=== PATIENT | male | born 1995 | race Two or more races ===

== ENCOUNTER 2017-02-14 22:15 | Emergency (ER) | payer BC, OTHER ==
[~2017-02-14] VITALS: Ht 180.3 cm; Wt 70.3 kg
[2017-02-14 22:27] VITALS: BP 133/72
[2017-02-14] MEDS ORDERED: HYDROCORTISONE30 G2 TP (22:33)
[2017-02-14] MEDS ORDERED: KEFLEX500 MG ORAL (22:33)
[2017-02-14 22:38] VITALS: BP 133/72
--- NOTE | 2017-02-15 02:49 | Emergency Room Report ---
History of Present Illness General Chief Complaint: Skin Rash/Abscess Source: Patient Present Illness HPI Patient is a 21-year-old male presented after increased skin rash to his lower extremities. Patient gradual onset of symptoms. Over the past few days. The patient denied fever. He reported having some generalized itching to his lower extremities. He reported having a friend's pet approximately 2 weeks ago. Itching developed over the past 3 days. He denied any leg numbness or tingling. Rash was isolated to his lower extremities. Allergies: Coded Allergies: No Known Allergies (Unverified , 02/14/17) Patient History Past Medical History: see triage record Reviewed Nursing Documentation: PMH: Agreed, PSxH: Agreed Nursing Documentation-PMH Past Medical History: No Stated History Review of Systems All Other Systems: negative except mentioned in HPI Physical Exam Vital Signs Date Time Temp Pulse Resp B/P Pulse Ox O2 Delivery O2 Flow Rate FiO2 02/14/17 22:22 97.9 98 16 133/72 100 Room Air General Appearance: well appearing, no apparent distress, alert, GCS 15 Head: normocephalic, atraumatic ENT: hearing grossly normal, normal voice Neck: full range of motion, supple Respiratory: no respiratory distress, speaking full sentences Musculoskeletal: normal inspection, no calf tenderness Neurologic: normal inspection, alert, oriented x3, responsive, normal gait Psychiatric: mood/affect normal Skin: no rash, other - multiple excoriations Medical Decision Making Diagnostic Impression: Primary Impression: Infected insect bite of ankle ER Course Patient presented for skin rash. Differential diagnosis included was not limited to Ortiz-Chad syndrome, urticaria, erythema multiforme, contact dermatitis, insect bite. Patient's benign exam and does not appear to require any further imaging or laboratory testing at this time. The patient appears to have the infected insect bites to his lower extremityPatient given prescription for steroid cream.The patient is advised to follow up with primary care doctor in 1-2 days. Patient is advised to return if any worsening condition or if any changes in status that are concerning. Last Vital Signs Date Time Temp Pulse Resp B/P Pulse Ox O2 Delivery O2 Flow Rate FiO2 02/14/17 22:38 97.9 16 133/72 100 Room Air 02/14/17 22:22 98 Status: improved Disposition: HOME, SELF-CARE Condition: Improved Scripts Hydrocortisone (Hydrocortisone Cream 2.5%) Y Cream.appl 1 APPLIC TP BID, #30 GM Prov: Benjamin Celis 02/14/17 Cephalexin* (KEFLEX*) 500 Mg Capsule 500 MG ORAL Q6H, #28 CAP 0 Refills Prov: Benjamin Celis 02/14/17 Referrals: NOT CHOSEN IPA/MD,REFERRING (PCP) Patient Instructions: Insect Bite, [id number] Benjamin Celis Feb 15, 2017 02:49
== END 2017-02-14 22:38 | disposition home or self-care (01) ==
LOC: EMR 22:30
DX: S90.569A Insect bite (nonvenomous), unspecified ankle, initial encounter (principal); L08.9 Local infection of the skin and subcutaneous tissue, unspecified; W57.XXXA Bitten or stung by nonvenomous insect and other nonvenomous arthropods, initial encounter; Y93.9 Activity, unspecified; Y92.9 Unspecified place or not applicable
CPT/HCPCS: 99284

== ENCOUNTER → 2017-03-20 | Emergency (ER) | payer OTHER ==
[~2017-03-20] VITALS: Ht 180.3 cm; Wt 70.3 kg
[~2017-03-20] MED LIST: ATARAX25 MG ORAL; HYDROCORTISONE30 G2 TP; KEFLEX500 MG ORAL; PERMETHRIN60 GM TOPIC
[2017-03-20 13:13] VITALS: BP 138/74
--- NOTE | 2017-03-20 14:09 | Emergency Room Report ---
History of Present Illness General Chief Complaint: Skin Rash/Abscess Present Illness HPI 21 YO Male presents to the ED c/o itchy rash with multiple lesions to the bilateral LE's x 2 weeks. pt. states he was seen here previously and rx'd cream and antibiotics, pt. states the cream mildly subsided his itching however he continues to have itchy lesions without relief. pt. states he has not followed up with a PMD since previous ED visit. pt. denies fevers, chills, erythema, joint pain, abdominal pain, or tender lymph nodes. pt. states that his symptoms have also progressed up the leg to the knees, and the bilateral wrists. Denies lesions/rashes elsewhere on the body. Denies new medications or body washes or creams. Denies swelling of the lips, tongue , throat or airway. Denies wheezing, or shortness of breath. Denies recent travel, recent illness or ill contacts. Denies CP, Palpitations, LOC, AMS, dizziness, Changes in Vision , Sensation, paresthesias, or a sudden severe headache. Allergies: Coded Allergies: No Known Allergies (Unverified , 02/14/17) Patient History Past Medical History: see triage record Past Surgical History: none Pertinent Family History: none Immunizations: UTD Reviewed Nursing Documentation: PMH: Agreed, PSxH: Agreed Nursing Documentation-PMH Past Medical History Deferred: Patient Unconscious Past Medical History: No Stated History Review of Systems All Other Systems: negative except mentioned in HPI Physical Exam Vital Signs Date Time Temp Pulse Resp B/P Pulse Ox O2 Delivery O2 Flow Rate FiO2 03/20/17 13:13 98.2 98 18 138/74 97 Room Air Sp02 EP Interpretation: reviewed, normal General Appearance: no apparent distress, alert, GCS 15, non-toxic Head: normocephalic, atraumatic Eyes: bilateral eye PERRL, bilateral eye normal inspection ENT: hearing grossly normal, normal pharynx, no angioedema, normal voice Neck: full range of motion, supple/symm/no masses Respiratory: lungs clear, normal breath sounds, speaking full sentences Cardiovascular #1: regular rate, rhythm, no edema Gastrointestinal: non tender, soft, no guarding Musculoskeletal: back normal, gait/station normal, normal range of motion, non- tender Neurologic: alert, oriented x3, responsive, motor strength/tone normal, sensory intact, speech normal Psychiatric: judgement/insight normal, memory normal, mood/affect normal Skin: normal color, warm/dry, well hydrated, rash - numerous flesh colored papules noted on the bilateral LE's and wrists, no erythema, no increased temperature to palpation, vessicles, or blisters. excoriations are noted on LE' s and UE's Lymphatic: no adenopathy Medical Decision Making PA Attestation Dr. Keene is my supervising Physician whom patient management has been discussed with. Diagnostic Impression: Primary Impression: Rash and other nonspecific skin eruption ER Course 21 YO Male presents to the ED c/o itchy rash with multiple lesions to the bilateral LE's x 2 weeks. pt. states he was seen here previously and rx'd cream and antibiotics, pt. states the cream mildly subsided his itching however he continues to have itchy lesions without relief. pt. states he has not followed up with a PMD since previous ED visit. pt. denies fevers, chills, erythema, joint pain, abdominal pain, or tender lymph nodes. pt. states that his symptoms have also progressed up the leg to the knees, and the bilateral wrists. Denies lesions/rashes elsewhere on the body. Denies new medications or body washes or creams. Denies swelling of the lips, tongue , throat or airway. Denies wheezing, or shortness of breath. Denies recent travel, recent illness or ill contacts. Denies CP, Palpitations, LOC, AMS, dizziness, Changes in Vision , Sensation, paresthesias, or a sudden severe headache. Ddx considered but are not limited to cellulitis, scabies, insect bites, tic bites, spider bites, contact dermatitis, Drug reaction, allergic reaction, fungal infection, lice. Vital signs: are WNL, pt. is afebrile H&PE are most consistent with rash with localized reaction, suspicious for scabies due to linear pattern. no evidence of secondary bacterial infection. ORDERS: none required at this time, the diagnosis is clinical ED INTERVENTIONS: None required at this time. -Pt. Education: on proper follow up with PCP, and Dermatology evaluation for skin rash if his symptoms persist. d/w pt. to return to ED for evaluation of worsening or new symptoms, otherwise with current presentation he is stable for close outpatient follow up. DISCHARGE: At this time pt. is stable for d/c to home. Will provide printed patient care instructions, and any necessary prescriptions. Care plan and follow up instructions have been discussed with the patient prior to discharge. Last Vital Signs Date Time Temp Pulse Resp B/P Pulse Ox O2 Delivery O2 Flow Rate FiO2 03/20/17 13:13 98.2 106 18 138/74 97 Room Air Disposition: HOME, SELF-CARE Condition: Stable Scripts Permethrin* (ELIMITE*) 60 Gm Cream..g. 1 APPLIC TOPIC ONCE, #60 GM 1 Refill Apply cream from head to toe; leave on for 8-14 hours before washing off with water; may reapply in 1 week if live mites appear. Prov: Malena Frank 03/20/17 Hydroxyzine HCl (Hydroxyzine HCl) 25 Mg Tablet 25 MG ORAL FOUR TIMES A DAY for 7 Days, #28 TAB Prov: Malena Frank 03/20/17 Hydrocortisone (Hydrocortisone Cream 2.5%) Y Cream.appl 1 APPLIC TP BID, #28.3 GM 1 Refill Prov: Malena Frank 03/20/17 Patient Instructions: Rash Additional Instructions: Take medications as directed. Follow up with a Primary Care Provider in 3-5 days, even if your symptoms have resolved. - DERMATOLOGY EVALUATION if symptoms persist. --Please review list of primary care clinics, if you do not already have a primary care provider Return sooner to ED if new symptoms occur, or current symptoms become worse. attached is some information about scabies, please disregard the title of Pediatric, this information is useful, and relevant regardless of age. - Please note that this Emergency Department Report was dictated using [employer] technology software, occasionally this can lead to erroneous entry secondary to interpretation by the dictation equipment. Malena Frank Mar 20, 2017 14:09
[2017-03-20 14:15] VITALS: BP 138/74
== END | disposition home or self-care (01) ==
LOC: EMR 13:00
DX: R21 Rash and other nonspecific skin eruption (principal)
CPT/HCPCS: 99284

== ENCOUNTER 2017-04-23 14:15 | Emergency (ER) | payer OTHER ==
[~2017-04-23] VITALS: Ht 180.3 cm; Wt 70.3 kg
--- NOTE | 2017-04-23 15:12 | Emergency Room Report ---
History of Present Illness General Chief Complaint: Skin Rash/Abscess Source: Patient Present Illness HPI 22-year-old male presents to the emergency department complaining of itchy lesions to the bilateral ankles and wrists intermittently x2.5 months. Patient states that he was treated several months ago for scabies infection. Patient states that he believes that his roommate who is not treated became infected and has caused him to become reinfected. Patient denies thorough cleaning of linens and carpets. Patient denies fevers, chills, nausea, vomiting.Denies lesions/rashes elsewhere on the body. Denies new medications or body washes or creams. Denies swelling of the lips, tongue , throat or airway. Denies wheezing , or shortness of breath. Denies recent travel, recent illness or ill contacts. denies blisters, oral lesions, or sloughing of the skin. Denies CP, Palpitations, LOC, AMS, dizziness, Changes in Vision, Sensation, paresthesias, or a sudden severe headache. Allergies: Coded Allergies: No Known Allergies (Unverified , 02/14/17) Patient History Past Medical History: see triage record Past Surgical History: none Pertinent Family History: none Immunizations: UTD Reviewed Nursing Documentation: PMH: Agreed, PSxH: Agreed Nursing Documentation-PMH Past Medical History: No Stated History Review of Systems All Other Systems: negative except mentioned in HPI Physical Exam Vital Signs Date Time Temp Pulse Resp B/P (MAP) Pulse Ox O2 Delivery O2 Flow Rate FiO2 04/23/17 14:30 98.1 77 14 128/81 96 Room Air Sp02 EP Interpretation: reviewed, normal General Appearance: no apparent distress, alert, GCS 15, non-toxic Head: normocephalic, atraumatic Eyes: bilateral eye normal inspection, bilateral eye PERRL ENT: hearing grossly normal, normal pharynx, no angioedema, normal voice, other - no swelling of the lips or tongue, no oral lesions. Neck: full range of motion, supple/symm/no masses Respiratory: lungs clear, normal breath sounds, no wheezing, speaking full sentences Cardiovascular #1: regular rate, rhythm, normal capillary refill Gastrointestinal: non tender, no guarding, no rebound Musculoskeletal: back normal, gait/station normal, normal range of motion, non- tender Neurologic: alert, oriented x3, responsive, motor strength/tone normal, sensory intact, speech normal Psychiatric: judgement/insight normal, memory normal, mood/affect normal Skin: normal color, warm/dry, well hydrated, rash - multiple scant erythematous papules with blanching erythema on the bilateral wrists and ankles , no lesions elsewhere on the body, no increased temperature to palpation no blisters , no vessicles. Lymphatic: no adenopathy Medical Decision Making PA Attestation Dr. rice is my supervising Physician whom patient management has been discussed with. Diagnostic Impression: Primary Impression: Rash and other nonspecific skin eruption ER Course 22-year-old male presents to the emergency department complaining of itchy lesions to the bilateral ankles and wrists intermittently x2.5 months. Patient states that he was treated several months ago for scabies infection. Patient states that he believes that his roommate who is not treated became infected and has caused him to become reinfected. Patient denies thorough cleaning of linens and carpets. Patient denies fevers, chills, nausea, vomiting.Denies lesions/rashes elsewhere on the body. Denies new medications or body washes or creams. Denies swelling of the lips, tongue , throat or airway. Denies wheezing , or shortness of breath. Denies recent travel, recent illness or ill contacts. denies blisters, oral lesions, or sloughing of the skin. Denies CP, Palpitations, LOC, AMS, dizziness, Changes in Vision, Sensation, paresthesias, or a sudden severe headache. Ddx considered but are not limited to cellulitis, scabies, shingles, varicella, dermatitis, urticaria, eczema, tinea, viral exanthem, SJS, parasitosis Vital signs: are WNL, pt. is afebrile H&PE are most consistent with insect bites with localized reaction no evidence of regional reaction , airway compromise, or angioedema. ORDERS: none required at this time, the diagnosis is clinical ED INTERVENTIONS: None required at this time. DISCHARGE: At this time pt. is stable for d/c to home. Will provide printed patient care instructions, and any necessary prescriptions. Care plan and follow up instructions have been discussed with the patient prior to discharge. Last Vital Signs Date Time Temp Pulse Resp B/P (MAP) Pulse Ox O2 Delivery O2 Flow Rate FiO2 04/23/17 14:30 98.1 77 14 128/81 96 Room Air Disposition: HOME, SELF-CARE Condition: Stable Scripts Hydrocortisone (Hydrocortisone Cream 2.5%) Y Cream.appl 1 APPLIC TP BID, #28.3 GM Prov: Malena Frank 04/23/17 Permethrin* (ELIMITE*) 60 Gm Cream..g. 1 APPLIC TOPIC ONCE, #60 GM 2 Refills Apply cream from head to toe; leave on for 8-14 hours before washing off with water; may reapply in 1 week if live mites appear. Prov: Malena Frank 04/23/17 Diphenhydramine Hcl (BENADRYL ALLERGY) 25 Mg Tablet 25 MG PO Q6HR, #20 TAB Prov: Malena Frank 04/23/17 Referrals: NOT CHOSEN [facility]/MD,REFERRING (PCP) Patient Instructions: Rash Additional Instructions: Take medications as directed. Follow up with a Primary Care Provider in 3-5 days, even if your symptoms have resolved. --Please review list of primary care clinics, if you do not already have a primary care provider Return sooner to ED if new symptoms occur, or current symptoms become worse. Do not drink alcohol, drive, or operate heavy machinery while taking Benadryl as this may cause drowsiness. - Please note that this Emergency Department Report was dictated using [employer] agent technology software, occasionally this can lead to erroneous entry secondary to interpretation by the dictation equipment. Malena Frank Apr 23, 2017 15:12
[2017-04-23] MEDS ORDERED: HYDROCORTISONE30 G2 TP (15:13)
[2017-04-23] MEDS ORDERED: BENADRYL ALLERG25 M1 PO (15:13)
[2017-04-23] MEDS ORDERED: PERMETHRIN60 GM TOPIC (15:13)
[2017-04-23 15:32] VITALS: BP 118/65
== END 2017-04-23 15:32 | disposition home or self-care (01) ==
LOC: EMR 14:40
DX: R21 Rash and other nonspecific skin eruption (principal)
CPT/HCPCS: 99284

== ENCOUNTER 2018-07-25 11:40 | Emergency (ER) | payer OTHER ==
[~2018-07-25] VITALS: Ht 182.9 cm; Wt 74.8 kg
[~2018-07-25 11:40] MED LIST changes: +BENADRYL ALLERG25 M1 PO
--- NOTE | 2018-07-25 12:08 | Emergency Room Report ---
History of Present Illness General Chief Complaint: Back Pain-No Injury Source: Patient Present Illness HPI 23-year-old male patient presents the ER with multiple complaints. Patient reports that he has been having right-sided flank pain for the past 2 weeks intermittently. Reports pain is reproducible, reports pain is worse with movement. Denies dysuria, hematuria. Also reports feeling "constipated". Reports is been able to have bowel movements, last bowel movement earlier today. Reports able to pass flatus. Reports that the right-sided flank pain radiates to his upper chest. Reports feeling short of breath during this time. Reports history of cough with thick sputum. Denies fever. Reports history of anxiety, states this feels different, states he takes hydroxyzine for anxiety. Denies abdominal pain. Denies vomiting. Denies diarrhea. Reports marijuana use, denies drinking alcohol or other drug use. Denies recent injury or trauma. Denies history of MD or heart disease. Allergies: Coded Allergies: No Known Allergies (Unverified , 02/14/17) Patient History Past Medical History: see triage record Reviewed Nursing Documentation: PMH: Agreed; PSxH: Agreed Nursing Documentation-PMH Past Medical History: No History, Except For History Of Psychiatric Problem: Yes - panic attacks Review of Systems All Other Systems: negative except mentioned in HPI Physical Exam Vital Signs Date Time Temp Pulse Resp B/P (MAP) Pulse Ox O2 Delivery O2 Flow Rate FiO2 07/25/18 11:46 98.2 85 18 131/79 97 Room Air Sp02 EP Interpretation: reviewed, normal General Appearance: well appearing, no apparent distress, alert, GCS 15, non- toxic Head: normocephalic, atraumatic Eyes: bilateral eye normal inspection, bilateral eye PERRL ENT: hearing grossly normal, normal pharynx, no angioedema, normal voice, uvula midline, moist mucus membranes Neck: full range of motion Respiratory: lungs clear, normal breath sounds, no rhonchi, no respiratory distress, no accessory muscle use, no wheezing, speaking full sentences, other - Upper sterna near ribs Cardiovascular #1: regular rate, rhythm, no edema Cardiovascular #2: 2+ radial (R), 2+ radial (L) Gastrointestinal: non tender, soft, no mass, non-distended, no guarding, no rebound Genitourinary: CVA tenderness (R) Musculoskeletal: back normal, digits/nails normal, gait/station normal, normal range of motion, non-tender, other - cap refill<2seconds Neurologic: alert, oriented x3, responsive, motor strength/tone normal, sensory intact Skin: no rash Medical Decision Making PA Attestation Dr. Padgett is my supervising Physician whom patient management has been discussed with. Diagnostic Impression: Primary Impression: Renal calculus Additional Impression: Nonspecific chest pain ER Course Pt. presents to the ED c/o right flank and chest pain, states pain reproducible with movement. Ddx considered but are not limited to nephrolithiasis, hydronephrosis, UTI, costochondritis, pericarditis, PE, AAA, MD, CHF, anxiety, strain, sprain. No hemoptysis, no tachycardia, negative Homans sign, no recent periods of immobilization, low suspicion for PE. No abdominal tenderness to palpation, no pulsatile mass, nontoxic appearing, no blood pressure elevation, low suspicion for AAA. Ordered ultrasound to rule out hydronephrosis or kidney stone. On PE, chest is TTP; chest pain likely musculoskeletal in nature, however ordered cardiac workup to rule out underlying etiology. Vital signs: are WNL, pt. is afebrile ER COURSE: EKG shows peaked T waves in V3 V4 V5, discussed care with Dr. Padgett, will order cardiac labs to rule out MD or cardiac etiology of symptoms. Clear to auscultation, no wheezes rhonchi or rales, patient speaking full sentences, pulse ox above 95, does not require breathing treatment at this time. Chest X-ray negative for acute disease. CBC and CMP unremarkable, WBC is her LFTs, lipase within normal limits UA negative for disease or infection, no hematuria Troponin not elevated to positive, CK MB normal, low suspicion for cardiac etiology of symptoms. On PE, chest is TTP; chest pain is reproducible, no suspicion for cardiopulmonary cause of symptoms. Possibly more musculoskeletal in nature. Patient instructed to take NSAIDs as needed for pain symptoms. 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 US shows no hydronephrosis, 4 mm intrarenal calculus. Discuss results with the patient. Provided patient with copy of results. Instructed patient to followup with PCP and discuss results of report with patient, discuss need for further treatment and referral. Informed patient to drink plenty of fluids, likely to pass on its own, does not require treatment at this time, denies dysuria or hematuria.. Follow-up with specialist, contact information provided. Patient seen and evaluated by , agrees with assessment and treatment plan. DISCHARGE: At this time pt is stable for d/c to home. Patient is resting comfortably, in no acute distress, nontoxic appearing, talking without difficulty. Patient to take medications as instructed Will provide with patient care instructions and any necessary prescriptions. Care plan and follow-up instructions provided. Patient instructed to follow-up with primary care provider in 3 - 5 days. Patient questions asked and answered. Patient reports understanding and agreement to treatment plan. ER precautions given. Patient instructed to return to ER immediately for any new or worsening of symptoms including but not limited to increasing SOB, persistent fever, chest pain, intractable vomiting. - Please note that this Emergency Department Report was dictated using [employer] product specialist technology software, occasionally this can lead to erroneous entry secondary to interpretation by the dictation equipment. Labs Test 07/25/18 12:30 07/25/18 13:45 White Blood Count 4.6 K/UL (4.8-10.8) Red Blood Count 5.40 M/UL (4.70-6.10) Hemoglobin 17.2 G/DL (14.2-18.0) Hematocrit 48.6 % (42.0-52.0) Mean Corpuscular Volume 90 FL (80-99) Mean Corpuscular Hemoglobin 31.8 PG (27.0-31.0) Mean Corpuscular Hemoglobin Concent 35.3 G/DL (32.0-36.0) Red Cell Distribution Width 10.2 % (11.6-14.8) Platelet Count 215 K/UL (150-450) Mean Platelet Volume 6.7 FL (6.5-10.1) Neutrophils (%) (Auto) 69.7 % (45.0-75.0) Lymphocytes (%) (Auto) 24.0 % (20.0-45.0) Monocytes (%) (Auto) 4.8 % (1.0-10.0) Eosinophils (%) (Auto) 0.6 % (0.0-3.0) Basophils (%) (Auto) 0.9 % (0.0-2.0) Sodium Level 139 MMOL/L (136-145) Potassium Level 4.2 MMOL/L (3.5-5.1) Chloride Level 102 MMOL/L (98-107) Carbon Dioxide Level 28 MMOL/L (21-32) Anion Gap 9 mmol/L (5-15) Blood Urea Nitrogen 15 mg/dL (7-18) Creatinine 1.0 MG/DL (0.55-1.30) Estimat Glomerular Filtration Rate > 60 mL/min (>60) Glucose Level 95 MG/DL (74-106) Calcium Level 9.5 MG/DL (8.5-10.1) Total Bilirubin 1.0 MG/DL (0.2-1.0) Aspartate Amino Transf (AST/SGOT) 23 U/L (15-37) Alanine Aminotransferase (ALT/SGPT) 34 U/L (12-78) Alkaline Phosphatase 57 U/L (46-116) Total Creatine Kinase 130 U/L (26-308) Creatine Kinase MB 1.5 NG/ML (0.0-3.6) Creatine Kinase MB Relative Index 1.1 Troponin I 0.017 ng/mL (0.000-0.056) Total Protein 8.5 G/DL (6.4-8.2) Albumin 4.5 G/DL (3.4-5.0) Globulin 4.0 g/dL Albumin/Globulin Ratio 1.1 (1.0-2.7) Lipase 66 U/L (73-393) Urine Color Pale yellow Urine Appearance Clear Urine pH 7 (4.5-8.0) Urine Specific Bradley 1.010 (1.005-1.035) Urine Protein Negative (NEGATIVE) Urine Glucose (UA) Negative (NEGATIVE) Urine Ketones Negative (NEGATIVE) Urine Blood Negative (NEGATIVE) Urine Nitrite Negative (NEGATIVE) Urine Bilirubin Negative (NEGATIVE) Urine Urobilinogen Normal MG/DL (0.0-1.0) Urine Leukocyte Esterase Negative (NEGATIVE) EKG Diagnostic Results Rate: normal Rhythm: NSR ST Segments: no acute changes Other Impression Peak T waves in V3 to V5 ASA given to the pt in ED: No PA Scribe Text Rao Barnard PA-C Rhythm Strip Diag. Results EP Interpretation: yes Rate: 78 Rhythm: NSR, no PVC's, no ectopy PA Scribe Text Rao Barnard PA-C Chest X-Ray Diagnostic Results Chest X-Ray Diagnostic Results : Chest X-Ray Ordered: Yes # of Views/Limited/Complete: 1 View Indication: Chest Pain EP Interpretation: Yes PA Xray: Interpretation reviewed, by supervising MD, and agrees with findings. Interpretation: no consolidation, no effusion, no pneumothorax, no acute cardiopulmonary disease Impression: No acute disease MARINE Scribdel Text Rao Barnard PA-C CT/MRI/US Diagnostic Results CT/MRI/US Diagnostic Results : Imaging Test Ordered: Renal US Impression Questionable nonobstructive right lower pole intrarenal calculus. Negative for hydronephrosis. Last Vital Signs Date Time Temp Pulse Resp B/P (MAP) Pulse Ox O2 Delivery O2 Flow Rate FiO2 07/25/18 11:46 98.2 85 18 131/79 97 Room Air Status: improved Disposition: HOME, SELF-CARE Condition: Stable Scripts Acetaminophen* (TYLENOL EXTRA STRENGTH*) 500 Mg Tablet 500 MG ORAL Q8H PRN for Prn Headache/Temp > 101, #30 TAB 0 Refills Prov: Krish Barnard 07/25/18 Patient Instructions: Costochondritis, [id number], Flank Pain, [id number], Kidney Stones, [id number], Nonspecific Chest Pain, [id number] Additional Instructions: Followup with primary care provider in 3 -5 days. Follow-up with specialist. Follow-up with PCP and discuss need for cardiac referral and evaluation, discuss need for stress testing. Take medications as directed. Patient questions asked and answered. ER precautions given, patient instructed to return to ER immediately for any new or worsening of symptoms. Krish Barnard Jul 25, 2018 12:08
[2018-07-25 12:10] VITALS: BP 131/79
[2018-07-25 12:49] LABS: BASOPHILS % (AUTO) 0.9 % (0.0-2.0); EOSINOPHILS % (AUTO) 0.6 % (0.0-3.0); HEMATOCRIT 48.6 % (42.0-52.0); HEMOGLOBIN 17.2 G/DL (14.2-18.0); MEAN CORPUSCULAR VOLUME 90 FL (80-99); MONOCYTES % (AUTO) 4.8 % (1.0-10.0); NEUTROPHILS % (AUTO) 69.7 % (45.0-75.0); PLATELET COUNT 215 K/UL (150-450); RED CELL DISTRIBUTION WIDTH 10.2 % (11.6-14.8); WHITE BLOOD COUNT 4.6 K/UL (4.8-10.8)
--- NOTE | 2018-07-25 13:01 | Diagnostic Imaging Report ---
Indication: Chest pain Technique: One view of the chest Comparison: Findings: Lungs and pleural spaces are clear. Heart size is normal Impression: No acute process
[2018-07-25 13:03] LABS: ANION GAP 9 mmol/L (5-15); BLOOD UREA NITROGEN 15 mg/dL (7-18); CALCIUM 9.5 MG/DL (8.5-10.1); CARBON DIOXIDE 28 MMOL/L (21-32); CHLORIDE 102 MMOL/L (98-107); POTASSIUM 4.2 MMOL/L (3.5-5.1); SODIUM 139 MMOL/L (136-145)
[2018-07-25 13:08] LABS: ALANINE AMINOTRANSFERASE 34 U/L (12-78); ALBUMIN 4.5 G/DL (3.4-5.0); ALBUMIN/GLOBULIN RATIO 1.1 (1.0-2.7); ALKALINE PHOSPHATASE 57 U/L (46-116); ASPARTATE AMINO TRANSFERASE 23 U/L (15-37)
[2018-07-25 13:20] LABS: CKMB 1.5 NG/ML (0.0-3.6)
[2018-07-25 13:57] LABS: APPEARANCE,URINE CLEAR; BILIRUBIN, URINE NEGATIVE (NEGATIVE); COLOR,URINE PALE YELLOW; GLUCOSE, URINE (UA) NEGATIVE (NEGATIVE); KETONES,URINE NEGATIVE (NEGATIVE); LEUKOCYTE ESTERASE ,URINE NEGATIVE (NEGATIVE); NITRITE,URINE NEGATIVE (NEGATIVE); PH,URINE 7 (4.5-8.0); PROTEIN,URINE NEGATIVE (NEGATIVE); UROBILINOGEN,URINE NORMAL MG/DL (0.0-1.0)
--- NOTE | 2018-07-25 14:53 | Diagnostic Imaging Report ---
Indication: Right flank and back pain Technique: Grayscale and duplex images of the kidneys, retroperitoneum, and bladder were obtained. Comparison: none Findings: Right kidney measures 9.6 cm in length. Left kidney measures 10.8 cm in length. Both kidneys demonstrate normal echogenicity. No hydronephrosis. Questionable echogenic focus seen in the right lower pole renal sinus, measuring 5 mm in diameter.. Normal inferior vena cava. Bladder is normal. Calculated volume 318 mL. Patient did not void for the exam. Normal bilateral ureteral jets are demonstrated. Impression: Questionable nonobstructive right lower pole intrarenal calculus. Negative for hydronephrosis.
[2018-07-25] MEDS ORDERED: TYLENOL EXTRA500 MG ORAL (15:19)
[2018-07-25] MEDS ORDERED: FLOMAX0.4 MG ORAL (15:19)
[2018-07-25 15:31] VITALS: BP 128/78
--- NOTE | 2018-07-26 16:02 | Cardiology Report ---
APPROVED REPORT EKG Measurement Heart [id number] Normal sinus rhythm Normal ECG
== END 2018-07-25 15:31 | disposition home or self-care (01) ==
LOC: EMR 12:04
DX: N20.0 Calculus of kidney (principal); R07.9 Chest pain, unspecified
CPT/HCPCS: 36415; 71045; 76770; 80053; 81003; 82550; 82553; 83690; 84484; 85025; 93005; 96360; 99284

== ENCOUNTER 2018-07-29 18:44 | Emergency (ER) | payer OTHER ==
[~2018-07-29] VITALS: Ht 182.9 cm; Wt 74.8 kg
[~2018-07-29 18:44] MED LIST changes: +FLOMAX0.4 MG ORAL; +TYLENOL EXTRA500 MG ORAL
[2018-07-29] MEDS ORDERED: NKM (18:54)
[2018-07-29 19:05] VITALS: BP 133/77
[2018-07-29] MEDS ORDERED: Ketorolac 30mg Inj IM ONE (19:15)
[2018-07-29] MEDS ORDERED: Methocarbamol 750mg tab ORAL ONE (19:15)
[2018-07-29] MEDS ORDERED: ROBAXIN-750750 MG PO (19:33)
[2018-07-29] MEDS ORDERED: IBUPROFEN600 MG ORAL (19:33)
[2018-07-29 19:38] VITALS: BP 121/82
--- NOTE | 2018-07-30 15:32 | Emergency Room Report ---
History of Present Illness General Chief Complaint: Chest Pain Source: Patient Present Illness HPI 23-year-old male presents ED for evaluation. Complaining of chest pain. States the symptoms started about one week ago. 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 Was seen here on 07/25 for same pain. At workup which was unremarkable and was discharged. Patient states pain persists. Patient points to the sternum. States pain is a 9 out of 10, sharp, nonradiating. Worse with twisting and bending. The pain with deep breaths. Denies shortness of breath. Denies alcohol or drug use. Denies smoking. Denies any cardiac risk factors. No other aggravating relieving factors. Denies any other associated symptoms Allergies: Coded Allergies: No Known Allergies (Unverified , 07/29/18) Patient History Past Medical History: none Past Surgical History: none Pertinent Family History: none Social History: Denies: smoking, alcohol use, drug use Immunizations: UTD Reviewed Nursing Documentation: PMH: Agreed; PSxH: Agreed Nursing Documentation-PMH Past Medical History: No Stated History Review of Systems All Other Systems: negative except mentioned in HPI Physical Exam Vital Signs Date Time Temp Pulse Resp B/P (MAP) Pulse Ox O2 Delivery O2 Flow Rate FiO2 07/29/18 18:50 98.2 101 16 133/77 96 Room Air Sp02 EP Interpretation: reviewed, normal General Appearance: no apparent distress, alert, GCS 15, non-toxic Head: normocephalic Eyes: bilateral eye normal inspection, bilateral eye PERRL ENT: normal ENT inspection Neck: normal inspection Respiratory: lungs clear, normal breath sounds, speaking full sentences, other - reproducible R anterior chest wall pain Cardiovascular #1: regular rate, rhythm, no edema Gastrointestinal: normal inspection Rectal: deferred Genitourinary: no CVA tenderness Musculoskeletal: normal inspection Neurologic: alert, oriented x3, responsive, motor strength/tone normal, sensory intact, speech normal Psychiatric: normal inspection Skin: normal inspection Lymphatic: normal inspection Medical Decision Making Diagnostic Impression: Primary Impression: Chest wall pain ER Course Hospital Course 23-year-old male presents ED complaining of reproducible chest wall pain. repeat visit Differential diagnoses include: Rib fracture, ND/unstable angina, contusion, muscle strain Clinical course Patient placed on stretcher. After initial history, physical exam reveals male in no acute distress. His reproducible anterior rib pain. No crepitus or bruising. Lungs clear bilaterally. Normal breath sounds. Vital stable. I reviewed EMR. On last visit it did appear that chest pain was muscular but cardiac workup was ordered. EKG was normal troponin was negative Patient was discharged with Tylenol Given no risk factors I see no reason to repeat cardiac workup as I believe this pain is muscular patient states the Tylenol helps somewhat. Patient given Toradol, Robaxin here On reassessment pain is improved. Will discharge with Motrin, Robaxin I. I feel this is a highly complex case requiring extensive working including EKG/Rhythm strip, Xray/CT/US, Blood/urine lab work, repeat exams while in ED, and administration of strong opiates/narcotics for pain control, admission to hospital or close patient follow up. Diagnosis - chest wall pain Stable and discharged to home with prescription for Motrin, robaxin. Instructed to followup with PMD. Return to ED if symptoms recur or worsen my chest wall pain shortness Last Vital Signs Date Time Temp Pulse Resp B/P (MAP) Pulse Ox O2 Delivery O2 Flow Rate FiO2 07/29/18 19:38 98.6 86 16 121/82 100 Room Air Status: improved Disposition: HOME, SELF-CARE Condition: Stable Scripts Methocarbamol* (ROBAXIN-750*) 750 Mg Tablet 750 MG PO TID, #21 TAB 0 Refills Prov: Andrae Casey MD 07/29/18 Ibuprofen* (MOTRIN*) 600 Mg Tablet 600 MG ORAL Q8H PRN for For Pain, #30 TAB 0 Refills Prov: Andrae Casey MD 07/29/18 Referrals: [facility],REFERRING (PCP) Patient Instructions: Chest Wall Pain, [id number] Andrae Casey MD Jul 30, 2018 15:31
== END 2018-07-29 19:43 | disposition home or self-care (01) ==
LOC: EMR 19:43
DX: R07.89 Other chest pain (principal)
CPT/HCPCS: 96372; 99283; J1885